=== PATIENT | female | born 1955 | race Two or more races ===

== ENCOUNTER 2023-10-20 07:59 | Outpatient (CLI) | payer OTHER | END 2023-10-20 08:04 | disposition home or self-care (01) | LOC: MAMO-SONO 07:59 | DX: Z12.31 Encounter for screening mammogram for malignant neoplasm of breast (principal) ==

== ENCOUNTER → 2023-10-27 13:16 | Outpatient (CLI) | payer OTHER | END | disposition home or self-care (01) | LOC: NUCLEAR 13:16 | DX: Z13.820 Encounter for screening for osteoporosis (principal) ==

== ENCOUNTER 2023-12-19 10:39 | Outpatient (CLI) | payer OTHER | END 2023-12-19 10:44 | disposition home or self-care (01) | LOC: RAD 10:39 | PROVIDERS: ATTEND Internal Medicine | DX: M25.562 Pain in left knee (principal) ==

== ENCOUNTER 2025-07-26 14:48 | Outpatient (CLI) | payer OTHER | END 2025-07-26 14:50 | disposition home or self-care (01) | LOC: MAMO-SONO 14:48 | PROVIDERS: ATTEND Internal Medicine | DX: M79.672 Pain in left foot (principal); Z12.31 Encounter for screening mammogram for malignant neoplasm of breast ==

== ENCOUNTER 2025-08-16 09:44 | Outpatient (CLI) | payer OTHER | END 2025-08-16 09:45 | disposition home or self-care (01) | LOC: NUCLEAR 09:44 | PROVIDERS: ATTEND Internal Medicine | DX: K30 Functional dyspepsia (principal); R10.11 Right upper quadrant pain | CPT/HCPCS: 78227; A9537 ==